=== PATIENT | female | born 2000 | race Caucasian/White ===

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

== ENCOUNTER 2018-01-16 08:50 | Outpatient (CLI) | payer MEDICAID ==
[2018-01-16 10:48] LABS: RUPTURE FETAL MEMBRANES NEGATIVE (NEGATIVE)
== END 2018-01-16 12:00 | disposition home or self-care (01) ==
LOC: OBT 08:50 → L-D 08:50 → OBT 12:00
DX: O62.9 Abnormality of forces of labor, unspecified (principal); Z3A.37 37 weeks gestation of pregnancy
CPT/HCPCS: 76815; 76818; 84112

== ENCOUNTER 2018-02-03 21:51 | Inpatient (IN) | payer MEDICAID ==
[2018-02-03] MEDS ORDERED: CARBOPROST 250 MCG INJ IM (23:00)
[2018-02-03] MEDS ORDERED: OXYTOCIN 30 UNITS/LR 500 ML IV (23:00)
[2018-02-03] MEDS ORDERED: OXYCODONE/ACETAMINOPHEN (5/325) TAB PO (23:00)
[2018-02-03] MEDS ORDERED: METHYLERGONOVINE 0.2 MG INJ IM (23:00)
[2018-02-03] MEDS ORDERED: LIDOCAINE 1% (MPF) 30 ML INJ INJ (23:00)
[2018-02-03] MEDS ORDERED: MISOPROSTOL 200 MCG TAB PR (23:00)
[2018-02-03] MEDS ORDERED: IBUPROFEN 600 MG TAB PO (23:00)
[2018-02-04] MEDS: AMPICILLIN 2 GM/NS (PMX) 100 ML IV (01:13)
[2018-02-04] MEDS: LACTATED RINGER'S 1,000 ML IV ×4 (01:16→09:39)
[2018-02-04 01:18] LABS: RUPTURE FETAL MEMBRANES POSITIVE (NEGATIVE)
[2018-02-04 01:53] LABS: ADD MAN DIFF? NO
[2018-02-04 01:55] LABS: WHITE BLOOD COUNT 12.4 10^3/ul (4.8-10.8)
[2018-02-04 01:55] LABS: BASOPHIL # 0.1 10^3/ul (0.0-0.1); BASOPHILS % 0.4 % (0.0-2.0); EOSINOPHILS # 0.1 10^3/ul (0.0-0.5); EOSINOPHILS % 0.6 % (0.0-7.0); HEMATOCRIT 30.5 % (37.0-47.0); HEMOGLOBIN 10.5 g/dl (12.0-16.0); LYMPHOCYTES # 2.1 10^3/ul (0.8-2.9); LYMPHOCYTES % 16.9 % (18.0-55.0); MEAN CORPUSCULAR HEMOGLOBIN 30.2 pg (29.0-33.0); MEAN CORPUSCULAR HGB CONC 34.4 g/dl (32.0-37.0); MEAN CORPUSCULAR VOLUME 87.6 fl (72.0-104.0); MONOCYTE # 1.1 10^3/ul (0.3-0.9); MONOCYTES % 8.6 % (0.0-13.0); NEUTROPHILS % 72.8 % (30.0-74.0); PLATELET COUNT 329 10^3/UL (140-415); RED BLOOD COUNT 3.48 10^6/ul (4.20-5.40); RED CELL DISTRIBUTION WIDTH 11.9 % (11.5-14.5)
[2018-02-04 02:14] LABS: INR 0.94; PROTIME 12.7 Sec (11.9-14.9)
[2018-02-04 02:15] LABS: PARTIAL THROMBOPLASTIN TIME 27.2 Sec (25.0-35.0)
[2018-02-04] MEDS ORDERED: AMPICILLIN 1 GM/NS (PMX) 50 ML IV (03:00)
[2018-02-04] MEDS: OXYTOCIN 30 UNITS/LR 500 ML IV ×5 (05:02→21:57)
[2018-02-04] MEDS: BUTORPHANOL 2 MG INJ IV (05:56)
[2018-02-04] MEDS ORDERED: FENTAnyl 2MCG/ML-ROPIV 0.2% 100 ML (07:37)
[2018-02-04] MEDS ORDERED: NALOXONE (0.4 MG/ML) INJ IV (11:30)
[2018-02-04] MEDS: FENTAnyl 2MCG/ML-ROPIV 0.2% 100 ML BAG EPI ×2 (14:18→14:20)
[2018-02-04] MEDS: DEXTROSE 5%-LR 1,000 ML IV (14:20)
[2018-02-04] MEDS ORDERED: CARBOPROST 250 MCG INJ IM (17:30)
[2018-02-04] MEDS ORDERED: METHYLERGONOVINE 0.2 MG INJ IM (17:30)
[2018-02-04] MEDS ORDERED: MISOPROSTOL 200 MCG TAB PR (17:30)
[2018-02-04] MEDS: IBUPROFEN 600 MG TAB PO ×2 (18:00→23:26)
[2018-02-04] MEDS: HYDROCODONE/APAP (5/325) TAB PO (21:30)
[2018-02-04] MEDS: LANOLIN 7 GM TUBE TOP (21:30)
[2018-02-04] MEDS: WITCH HAZEL/GLYCERIN PAD PR (21:30)
[2018-02-04] MEDS: BENZOCAINE 20% 56 ML SPRAY TOP (21:30)
[2018-02-04 22:55] LABS: RAPID PLASMA REAGIN NONREACTIVE (NR)
[2018-02-05] MEDS: IBUPROFEN 600 MG TAB PO ×3 (05:42→17:18)
[2018-02-05] MEDS: OXYTOCIN 30 UNITS/LR 500 ML IV ×2 (07:42→17:19)
[2018-02-05 09:05] LABS: ADD MAN DIFF? NO
[2018-02-05 09:07] LABS: WHITE BLOOD COUNT 18.6 10^3/ul (4.8-10.8)
[2018-02-05 09:07] LABS: LYMPHOCYTES % 13.2 % (18.0-55.0); MEAN CORPUSCULAR HEMOGLOBIN 31.3 pg (29.0-33.0); MEAN CORPUSCULAR HGB CONC 35.7 g/dl (32.0-37.0); MEAN CORPUSCULAR VOLUME 87.5 fl (72.0-104.0); MEAN PLATELET VOLUME 9.2 fl (7.4-10.4); NEUTROPHILS % 77.7 % (30.0-74.0); PLATELET COUNT 284 10^3/UL (140-415)
[2018-02-05 09:08] LABS: BASOPHIL # 0.1 10^3/ul (0.0-0.1); BASOPHILS % 0.3 % (0.0-2.0); EOSINOPHILS # 0.1 10^3/ul (0.0-0.5); EOSINOPHILS % 0.6 % (0.0-7.0); LYMPHOCYTES # 2.5 10^3/ul (0.8-2.9); MONOCYTE # 1.4 10^3/ul (0.3-0.9); MONOCYTES % 7.6 % (0.0-13.0); NEUTROPHIL # 14.4 10^3/ul (1.6-7.5)
[2018-02-05] MEDS: INFLUENZA VIRUS VACCINE 0.5 ML SYG IM* (16:49)
[2018-02-06] MEDS: IBUPROFEN 600 MG TAB PO ×4 (05:35→17:46)
[2018-02-06 06:45] LABS: ADD UMIC YES; UR ASCORBIC ACID NEGATIVE (NEGATIVE); UR BILIRUBIN (Dip) NEGATIVE (NEGATIVE); UR BLOOD (Dip) 2+ mg/dL (NEGATIVE); UR CLARITY CLEAR (CLEAR); UR COLOR YELLOW (YELLOW); UR GLUCOSE (Dip) NEGATIVE (NEGATIVE); UR KETONES (Dip) NEGATIVE (NEGATIVE); UR LEUKOCYTE ESTERASE (Dip) 1+ Leu/ul (NEGATIVE); UR NITRITE (Dip) NEGATIVE (NEGATIVE); UR RBC 27 /HPF (0-5); UR SPECIFIC GRAVITY (Dip) 1.015 (1.003-1.030); UR TOTAL PROTEIN (Dip) NEGATIVE (NEGATIVE); UR UROBILINOGEN (Dip) 1+ mg/dL (NEGATIVE); UR WBC 34 /HPF (0-5)
[2018-02-06 10:22] LABS: ADD MAN DIFF? NO
[2018-02-06 10:27] LABS: BASOPHIL # 0.1 10^3/ul (0.0-0.1); BASOPHILS % 0.3 % (0.0-2.0); EOSINOPHILS # 0.4 10^3/ul (0.0-0.5); EOSINOPHILS % 2.5 % (0.0-7.0); HEMATOCRIT 30.6 % (37.0-47.0); HEMOGLOBIN 10.5 g/dl (12.0-16.0); LYMPHOCYTES # 1.7 10^3/ul (0.8-2.9); LYMPHOCYTES % 11.2 % (18.0-55.0); MEAN CORPUSCULAR HEMOGLOBIN 30.7 pg (29.0-33.0); MEAN CORPUSCULAR HGB CONC 34.3 g/dl (32.0-37.0); MEAN CORPUSCULAR VOLUME 89.5 fl (72.0-104.0); MEAN PLATELET VOLUME 9.1 fl (7.4-10.4); MONOCYTE # 0.8 10^3/ul (0.3-0.9); MONOCYTES % 5.6 % (0.0-13.0); NEUTROPHILS % 79.9 % (30.0-74.0); PLATELET COUNT 334 10^3/UL (140-415); RED BLOOD COUNT 3.42 10^6/ul (4.20-5.40); RED CELL DISTRIBUTION WIDTH 12.2 % (11.5-14.5)
[2018-02-06] MEDS: PHENAZOPYRIDINE 100 MG TAB PO ×3 (10:48→21:13)
[2018-02-06] MEDS: CEFTRIAXONE 2 GM/50 ML (PMX) 50 ML IVPB (10:49)
[2018-02-06] MEDS: ACETAMINOPHEN 325 MG TAB PO (10:49)
[2018-02-07] MEDS: IBUPROFEN 600 MG TAB PO ×4 (00:22→17:25)
[2018-02-07] MEDS: PHENAZOPYRIDINE 100 MG TAB PO ×3 (09:12→21:15)
[2018-02-07] MEDS: CEFTRIAXONE 2 GM/50 ML (PMX) 50 ML IVPB (10:30)
[2018-02-07 15:11] LABS: ADD MAN DIFF? NO
[2018-02-07 15:14] LABS: WHITE BLOOD COUNT 11.6 10^3/ul (4.8-10.8)
[2018-02-07 15:14] LABS: BASOPHILS % 0.3 % (0.0-2.0); EOSINOPHILS # 0.3 10^3/ul (0.0-0.5); EOSINOPHILS % 2.7 % (0.0-7.0); HEMATOCRIT 30.7 % (37.0-47.0); HEMOGLOBIN 10.4 g/dl (12.0-16.0); LYMPHOCYTES # 1.8 10^3/ul (0.8-2.9); LYMPHOCYTES % 15.6 % (18.0-55.0); MEAN CORPUSCULAR HEMOGLOBIN 30.4 pg (29.0-33.0); MEAN CORPUSCULAR HGB CONC 33.9 g/dl (32.0-37.0); MEAN CORPUSCULAR VOLUME 89.8 fl (72.0-104.0); MEAN PLATELET VOLUME 8.9 fl (7.4-10.4); MONOCYTE # 0.7 10^3/ul (0.3-0.9); MONOCYTES % 5.9 % (0.0-13.0); NEUTROPHIL # 8.7 10^3/ul (1.6-7.5); PLATELET COUNT 385 10^3/UL (140-415); RED BLOOD COUNT 3.42 10^6/ul (4.20-5.40); RED CELL DISTRIBUTION WIDTH 12.3 % (11.5-14.5)
[2018-02-08] MEDS: IBUPROFEN 600 MG TAB PO ×2 (00:49→06:00)
[2018-02-08] MEDS: DIPHTH/TET/ACEL PERTUSS (ADULT) 0.5 ML VIAL IM* (10:17)
== END 2018-02-08 13:53 | disposition home or self-care (01) | DRG 775 ==
LOC: OBT 21:51 → PP1 02-04 18:51 → L-D 21:52 → OBT 23:03 → L-D 22:46
PROVIDERS: Obstetrics & Gynecology
PROC: 10E0XZZ Delivery of Products of Conception, External Approach (ICD-10-PCS; principal; 2018-02-04)
PROC: 0KQM0ZZ Repair Perineum Muscle, Open Approach (ICD-10-PCS; 2018-02-04)
PROC: 3E033VJ Introduction of Other Hormone into Peripheral Vein, Percutaneous Approach (ICD-10-PCS; 2018-02-04)
DX: O48.0 Post-term pregnancy (principal); O70.1 Second degree perineal laceration during delivery; R33.9 Retention of urine, unspecified; Z3A.40 40 weeks gestation of pregnancy; Z37.0 Single live birth
CPT/HCPCS: 62319; 76815; 81001; 84112; 85025; 85610; 85730; 86592; 86850; 86900; 86901; 87086; 90686; 90715; 99464

== ENCOUNTER 2018-02-10 07:26 | Emergency (ER) | payer MEDICAID | END 2018-02-10 11:26 | disposition home or self-care (01) | LOC: FTE 07:26 | DX: O90.89 Other complications of the puerperium, not elsewhere classified (principal); R33.9 Retention of urine, unspecified; Z46.6 Encounter for fitting and adjustment of urinary device | CPT/HCPCS: 51702; 87086; 99283-25 ==